=== PATIENT | female | born 1955 | race Caucasian/White ===

== ENCOUNTER → 2023-08-16 13:25 | Outpatient (REF) | payer MEDICARE, OTHER, SELFPAY | LOC: HWWDC 13:25 | PROVIDERS: ATTENDING PHYSICIAN Family Medicine; FAMILY PHYSICIAN Family Medicine | DX: Z12.31 Encounter for screening mammogram for malignant neoplasm of breast (principal) | CPT/HCPCS: 77063; 77067 ==

== ENCOUNTER → 2023-08-29 15:00 | Outpatient (REF) | payer MEDICARE, OTHER, SELFPAY | LOC: HWEVLT 15:00 | PROVIDERS: ATTENDING PHYSICIAN Radiology Vascular & Interventional Radiology | DX: I83.893 Varicose veins of bilateral lower extremities with other complications (principal) | CPT/HCPCS: 93970 ==

== ENCOUNTER 2023-09-01 06:22 | Day surgery (SDC) | payer MEDICARE, OTHER, SELFPAY ==
[2023-09-01 08:11] VITALS: BMI 32.3
[2023-09-01 08:23] VITALS: BMI 32.3
[2023-09-01 08:29] VITALS: BP 167/100
[2023-09-01 10:28] VITALS: BP 140/104
[2023-09-01 10:40] VITALS: BP 122/105
[2023-09-01 10:50] VITALS: BP 143/77
[2023-09-01 11:00] VITALS: BP 132/97
== END 2023-09-01 11:10 | disposition home or self-care (01) ==
LOC: GI 06:22
PROVIDERS: ATTENDING PHYSICIAN Internal Medicine Gastroenterology
DX: K31.7 Polyp of stomach and duodenum (principal); R93.3 Abnormal findings on diagnostic imaging of other parts of digestive tract; K31.89 Other diseases of stomach and duodenum
CPT/HCPCS: 43237

== ENCOUNTER → 2023-09-14 13:27 | Outpatient (REF) | payer MEDICARE, OTHER, SELFPAY | LOC: MRI 3T 13:27 | PROVIDERS: ATTENDING PHYSICIAN Orthopaedic Surgery; FAMILY PHYSICIAN Family Medicine | DX: M25.561 Pain in right knee (principal) | CPT/HCPCS: 73721 ==

== ENCOUNTER → 2024-04-10 09:27 | Outpatient (REF) | payer MEDICARE, OTHER, SELFPAY | LOC: HWEVLT 09:27 | PROVIDERS: ATTENDING PHYSICIAN Radiology Vascular & Interventional Radiology | DX: I83.891 Varicose veins of right lower extremity with other complications (principal) | CPT/HCPCS: 36478; C1769 ==

== ENCOUNTER → 2024-04-24 11:42 | Outpatient (REF) | payer MEDICARE, OTHER, SELFPAY | LOC: HWEVLT 11:42 | PROVIDERS: ATTENDING PHYSICIAN Radiology Vascular & Interventional Radiology | DX: I83.891 Varicose veins of right lower extremity with other complications (principal) | CPT/HCPCS: 93971 ==

== ENCOUNTER → 2024-08-26 10:34 | Outpatient (REF) | payer MEDICARE, OTHER, SELFPAY | LOC: WDC 10:34 | PROVIDERS: ATTENDING PHYSICIAN Family Medicine; FAMILY PHYSICIAN Family Medicine | DX: Z12.31 Encounter for screening mammogram for malignant neoplasm of breast (principal) | CPT/HCPCS: 77063; 77067 ==

== ENCOUNTER → 2025-01-28 09:19 | Outpatient (REF) | payer MEDICARE, OTHER, SELFPAY | LOC: HWRAD 09:19 | PROVIDERS: ATTENDING PHYSICIAN Internal Medicine Cardiovascular Disease; FAMILY PHYSICIAN Family Medicine | DX: E78.5 Hyperlipidemia, unspecified (principal); Z82.49 Family history of ischemic heart disease and other diseases of the circulatory system | CPT/HCPCS: 75571 ==

== ENCOUNTER → 2025-03-28 14:46 | Outpatient (REF) | payer MEDICARE, OTHER, SELFPAY | LOC: HWRAD 14:46 | PROVIDERS: ATTENDING PHYSICIAN Family Medicine | DX: E04.8 Other specified nontoxic goiter (principal) | CPT/HCPCS: 76536 ==

== ENCOUNTER 2025-06-29 07:26 | Emergency (ER) | payer MEDICARE, OTHER, SELFPAY ==
[2025-06-29 07:28] VITALS: BP 152/95
--- NOTE | 2025-06-29 08:03 | ED.GENMED ---
History of Present Illness
General
Chief Complaint: Flank Pain
Source: patient
Time Seen by Provider: 06/29/25 07:32
History of Present Illness
History of Present Illness:
70-year-old female with past medical history of hypertension, hyperlipidemia and GERD presenting to the emergency department for evaluation of right-sided back pain described to be right underneath the scapula that started about 2 weeks ago, mild
dull pain that while today is not more severe she states feels as if it is now radiating towards the upper part of her back and into her right neck and ear area but does not seem to be exacerbated with movement, palpation, deep inspiration or any
other attempted elicited factors. Patient has no other symptoms associated including chest pain, shortness of breath, cough, pleurisy, hemoptysis, fevers or infectious symptoms, headaches, urinary symptoms or bowel changes. She denies any history
of similar. She does note having an abnormal cardiac test done imaging [facility] here and is scheduled to undergo a CT scan within the coming weeks but patient is unable to elaborate further on the abnormality. Social history noncontributory.
Past History
Past History
ED Past Medical History: GERD, HTN and Hypercholesterolemia
ED Past Surgical History: Gynecological
Social History
Tobacco: Non-smoker
Alcohol: None
Drug: None
Personal:
Living: with family
Family History
Family History: CAD; Negative Early CAD
Review of Systems
Review of Systems
All Other Systems: ROS reviewed and negative except as documented in HPI and ROS
Phy Exam
Physical Exam
Physical Exam:
GENERAL: Alert , in no apparent distress
EYE: clear conjunctiva b/l
HEAD: NCAT
ENT: o/p clr, mmm.
CARDIAC: Regular rate and rhythm .
LUNGS: Clear breath sounds bilaterally, no acute respiratory distress, no wheezes/rales/rhonchi
ABDOMEN: Soft, without focal tenderness, no r/g, no cvat
NEUROLOGICAL: Alert and oriented
SKIN: Warm and dry, skin intact. no rash
MUSCULOSKELETAL: No edema, well perfused.
PSYCH: Normal and appropriate interaction.
Scores
Heart Failure Risk
Heart Failure Risk Score: Not Applicable
Heart Score for Chest Pain Patients
STEMI patient?: Not applicable
Withdrawal Assessment of Alcohol
Withdrawal Assessment Completed?: Not applicable
Course
Orders/Labs/Results
Orders:
Orders
06/29/25 07:59
Electrocardiogram (*1) Urgent
Reason for Study: Other
Other Reason for Exam: back pain
EKG- Treatment ONCE
06/29/25 08:01
CT Chest PE Study Urgent
Comment:
Reason For Exam: right sided scapular pain, ascending aneurysm
06/29/25 08:12
Complete Blood Count/With Diff Urgent
Comprehensive Metabolic Panel Urgent
Troponin I Urgent
Urinalysis Reflex To Culture Urgent
Date Specimen was Collected: 06/29/25
Time Specimen was Collected: 08:04
Urine Microscopic Reflex Cult Urgent
Urine Culture Urgent
RAMBO Source: U
Specimen Description:
Date Specimen was Collected: 06/29/25
Time Specimen was Collected: 08:04
Abnormal Lab Results
06/29/25
08:12
RBC 3.80 L 10^6/uL
(4.20-5.40)
Hgb 11.9 L g/dL
(12.0-16.0)
Hct 35.8 L %
(37.0-47.0)
MCH 31.3 H pg
(27.0-31.0)
Absolute Monos (auto) 0.8 H 10^3/uL
(0.1-0.6)
BUN 35 H mg/dl
(7-17)
Glucose 100 H mg/dl
(70-99)
Leukocyte Esterase Rfl 1+ A
(Negative)
Urine Bacteria (Reflex) Few A
(Negative)
06/29/25 08:12
06/29/25 08:12
Vital Signs
Initial and Last Documented VS:
Initial Vital Signs
Temp Pulse Resp BP Pulse Ox
98.3 F 100 16 152/95 98
06/29/25 07:28 06/29/25 07:28 06/29/25 07:28 06/29/25 07:28 06/29/25 07:28
Last Documented Vital Signs
Temp Pulse Resp BP Pulse Ox
98.3 F 100 16 152/95 98
06/29/25 07:28 06/29/25 07:28 06/29/25 07:28 06/29/25 07:28 06/29/25 08:17
MDM/Problems Addressed
Differential Diagnosis Includes:
PE
Dissection
Aneurysm
Muscular pain
Pneumonia
Atypical ACS
Shingles
MDM/Problems Addressed:
70-year-old female presenting to the ER for evaluation of right sided scapular pain, last night and today pain seem to go more into the upper part of her back/facial area which is ultimately what prompted patient to come to the ER. Hemodynamically
stable. I reviewed patient's imaging from earlier this year which showed a CT coronary calcium score that showed a fusiform aneurysmal dilatation of the ascending thoracic aorta measuring 4.1 cm. Will obtain labs including troponin as well as EKG,
CT scan of the chest ordered although my suspicion for any emergent pathology is still quite low.
*Radiology
Radiology exam reviewed: radiology read reviewed
*Pulse Oximetry
SaO2: 98
Oxygen Mode of Delivery: Room air
Patient hypoxic: no
*EKG
Heart Rate: 67
Rate: normal
Rhythm: sinus and PVC's
Ischemia: no ischemia
*Critical Care Note
Total Time (30-74mins, 75-104mins- exclusive of procedures): Not Applicable
Data Reviewed
Review of Other/Old Records Reveals: Records and Radiology Studies
Patient Management
Escalation/DeEscalation of care consider admission/obs:
Patient's workup reassuring. Labs are within normal limits, urine without sign of infection and chest CT is without any acute pathologies. EKG is a sinus rhythm, no ischemic changes. Encouraged follow-up with primary care provider. Aware of
return precautions to the ER.
ED Attending Note
-
Portions of this chart may have been created with voice recognition software.� Occasional wrong word or��sound alike� substitutions may have occurred due to the inherent limitations of voice recognition software.
Discharge Plan
Departure
Patient Disposition: Home (Routine Discharge)
Date of Disposition: 06/29/25
Time of Disposition: 10:33
Patient with high blood pressure during this ER visit?: Yes
Discharge Problem:
Back pain
Instructions: Flank Pain (DC)
Prescriptions:
No Action
pantoprazole 40 MG tablet,delayed release (DR/EC)
40 mg PO DAILY
lisinopril 5 MG tablet
20 mg PO DAILY
cholecalciferol (vitamin D3) 125 MCG/0.5 ML drops
125 mcg PO DAILY
atorvastatin 10 mg Tablet
10 mg PO DAILY
Folate
1 tab PO DAILY
Referrals:
Rodolfo Rodriguez MD [Family Provider, [facility]]
Interventions
Interventions:
*General Assessment Last Done: 06/29/25 07:28
*Neglect/Abuse Screening Last Done: 06/29/25 07:28
*Risk Screen - Suicide (C-SSRS) Last Done: 06/29/25 07:28
Discharge Date and Time
Print Language: BRITISH
[2025-06-29 08:30] LABS: Urine Character Clear (Clear)
[2025-06-29 08:33] LABS: Hematocrit 35.8 % (37.0-47.0); Hemoglobin 11.9 g/dL (12.0-16.0); Mean Corp Hgb Conc. 33.2 g/dL (33.0-37.0); Mean Corpuscular Volume 94.2 fL (81.0-99.0); Nucleated Red Blood Cells % 0 %; Platelet Count 285 10^3/uL (130-400); Red Cell Dist. Width 14.1 % (11.5-14.5)
[2025-06-29 08:39] LABS: ALT (SGPT) 17 U/L (0-35); AST (SGOT) 20 U/L (14-36); Albumin 4.6 g/dl (3.5-5.0); Alkaline Phosphatase 62 U/L (38-126); Blood Urea Nitrogen 35 mg/dl (7-17); Calcium 9.9 mg/dl (8.4-10.2); Carbon Dioxide 25 mmol/L (22-30); Chloride 106 mmol/L (98-107); Glucose 100 mg/dl (70-99); Potassium 4.6 mmol/L (3.5-5.1); Sodium 138 mmol/L (135-145); Total Protein 6.9 g/dl (6.3-8.2); eGFR > 60.00
[2025-06-29 08:51] LABS: Troponin I < 0.012 ng/ml
[2025-06-29 09:16] LABS: Urine Red Blood Cell None Seen /HPF (0-2)
== END 2025-06-29 10:46 | disposition home or self-care (01) ==
LOC: EMR 07:26
PROVIDERS: Physician Assistant Medical; EMERGENCY PHYSICIAN Emergency Medicine; FAMILY PHYSICIAN Family Medicine
DX: M54.6 Pain in thoracic spine (principal); I71.21 Aneurysm of the ascending aorta, without rupture; I10 Essential (primary) hypertension; E78.00 Pure hypercholesterolemia, unspecified; K21.9 Gastro-esophageal reflux disease without esophagitis; Z82.49 Family history of ischemic heart disease and other diseases of the circulatory system
CPT/HCPCS: 99284; 71275; 80053; 81003; 81015; 84484; 85025; 87086; 93005; Q9967